=== PATIENT | male | born 2000 | race Caucasian/White ===

== ENCOUNTER 2022-08-07 22:09 | Emergency (ER) | payer BC ==
[~2022-08-07] VITALS: Ht 185.4 cm; Wt 104.3 kg
[2022-08-07 22:12] VITALS: BP 129/70
[2022-08-07 22:15] VITALS: BP 129/70
--- NOTE | 2022-08-07 22:16 | NUR ---
TO LOBBY A/W BED AMBULATORY
--- NOTE | 2022-08-07 23:12 | NUR ---
SEEN AND EXAMINED BY GAETANO
--- NOTE | 2022-08-07 23:30 | NUR ---
C/O REDNESS, SWELLING, PAIN ON OS SINCE LUDY
[2022-08-07] MEDS ORDERED: FLUORESCEIN OPTH STRIP 1 MG OP ONE (23:35)
[2022-08-08] MEDS ORDERED: OFLO5SOL LEFT EYE (00:08)
--- NOTE | 2022-08-08 00:10 | NUR ---
Patient discharged with v/s stable. Written and verbal after care instructions given and explained. Patient alert, oriented and verbalized understanding of instructions. Ambulatory with steady gait. All questions addressed prior to discharge. ID band removed. Patient advised to follow up with PMD. Rx of OFLOXACIN given. Patient educated on indication of medication including possible reaction and side effects. Opportunity to ask questions provided and answered.
== END 2022-08-08 00:10 | disposition home or self-care (01) ==
LOC: MED 22:09
DX: S05.02XA Injury of conjunctiva and corneal abrasion without foreign body, left eye, initial encounter (principal); X58.XXXA Exposure to other specified factors, initial encounter; Y93.89 Activity, other specified; Y92.89 Other specified places as the place of occurrence of the external cause; Y99.8 Other external cause status
CPT/HCPCS: 99283